=== PATIENT | female | born 1970 | race African-American/Black ===

== ENCOUNTER 2016-09-23 06:47 | Emergency (ER) | payer BC ==
[~2016-09-23] VITALS: Ht 154.9 cm; Wt 65.0 kg
[2016-09-23 06:49] VITALS: BP 171/103; PULSE 100; RESP 16; TEMP 98.7; O2SAT 100
[2016-09-23 06:54] VITALS: BP 179/100
[2016-09-23] MEDS ORDERED: METO-309 PO (07:04)
[2016-09-23] MEDS ORDERED: LOTR10CA2 PO (07:04)
--- NOTE | 2016-09-23 07:06 | PD ---
HPI . left sided tooth pain and jaw swellin x 1 day Chief Complaint: Oral / Dental Pain or Problem Time Seen by Provider: 07:06 Travel History International Travel<30 days: No Contact w/Intl Traveler<30days: No Traveled to known affect area: No History of Present Illness HPI 46-year-old female with history of hypertension here with complaints of dental pain. Patient has a cracked tooth in her lower jaw and tells me that all of a sudden yesterday it started to hurt and swell. She is visiting from [place] and plans on returning home to see a dentist this week. She denies any fever or chills. She has no other complaints. PFSH Past Medical History Hypertension: Yes Social History Tobacco Use: No Allergies-Medications (Allergen,Severity, Reaction): Coded Allergies: No Known Allergies (Unverified , 09/23/16) Reported Meds & Prescriptions Reported Meds & Active Scripts Active Ibuprofen 800 Mg Tab 800 Mg PO TID Augmentin (Amoxicillin-Clavulanate) 875-125 mg Tab 875 Mg PO BID not for use in CrCl <30 ml/min. Reported Lopressor (Metoprolol Tartrate) 50 Mg Tab 25 Mg PO BID Lotrel (Amlodipine-Benazepril) 10-40 Mg Cap 1 Cap PO DAILY Review of Systems General / Constitutional: No: Fever Eyes: No: Visual changes HENT: Positive: Dental Difficulties, No: Headaches Cardiovascular: No: Chest Pain or Discomfort Respiratory: No: Shortness of Breath Gastrointestinal: No: Abdominal Pain Genitourinary: No: Dysuria Musculoskeletal: No: Pain Skin: No Rash Neurologic: No: Weakness Psychiatric: No: Depression Endocrine: No: Polydipsia Hematologic/Lymphatic: No: Easy Bruising Physical Exam Narrative GENERAL: AAO x 3, no acute distress, Well-nourished, well-developed patient. SKIN: Warm and dry. No visible rashes or bruising. HEAD: Normocephalic and atraumatic. EYES: No scleral icterus. No injection or drainage. ENT: No nasal drainage noted. Mucous membranes pink. Airway patent. Minimal edema around # 17, which is partial cracked and remains in gum. There is no definitive abscess formation or fluid collection. The cheek is minimally swollen without any definitive fluid collection. NECK: Supple, trachea midline. No JVD. no lymphadenopathy CARDIOVASCULAR: Regular rate and rhythm without murmurs, gallops, or rubs. RESPIRATORY: Breath sounds equal bilaterally. No accessory muscle use. No rhonchi or rales. GASTROINTESTINAL: Abdomen soft, non-tender, nondistended. EXTREMITIES: No cyanosis or edema. BACK: Nontender without obvious deformity. No CVA tenderness. PSYCH: AAO x 3, normal affect. Data Data Last Documented VS Vital Signs Date Time Temp Pulse Resp B/P Pulse Ox O2 Delivery O2 Flow Rate FiO2 09/23/16 06:54 179/100 09/23/16 06:49 98.7 100 16 100 Room Air MDM Medical Decision Making Medical Screen Exam Complete: Yes Emergency Medical Condition: Yes Medical Record Reviewed: Yes (none on file) Differential Diagnosis oral cellulitis, less likely gingivitis, less likely oral abscess Narrative Course 46-year-old female with history of hypertension here with complaints of dental pain. Patient has a cracked tooth in her lower jaw and tells me that all of a sudden yesterday it started to hurt and swell. She is visiting from [place] and plans on returning home to see a dentist this week. She denies any fever or chills. She has no other complaints. Patient has some oral cellulitis, start of abscess around #17 recommend start antibiotics and f/u with dentist for extraction of cracked tooth no definitive oral abscess to drain Patient verbalized understanding of instructions, questions were answered, and thanked me for their care. I advised them if their condition worsens, please return to the nearest emergency room for further care. Diagnosis Primary Impression: Oral cellulitis Patient Instructions: Dental Abscess (ED), Dental Caries (ED), General Instructions Additional Instructions: Try saltwater gargles daily. Please return to emergency department if your symptoms return or worsen. Follow up with your primary care provider. Take medications as prescribed. Please try to see a dentist within the next 2-3 days. Med/Other Pt SpecificInfo: Prescription(s) given Scripts Ibuprofen 800 Mg [id number] Mg PO TID #20 TAB Prov:Shaun Connelly MD 09/23/16 Amoxicillin-Clavulanate (Augmentin)875-125 mg [id number] Mg PO BID #20 TAB not for use in CrCl <30 ml/min. Prov:Shaun Connelly MD 09/23/16 Disposition: 01 DISCHARGE HOME Condition: Stable Lizz Cook Sep 23, 2016 07:06
[2016-09-23] MEDS ORDERED: IBUP800T23 PO (07:09)
[2016-09-23] MEDS ORDERED: AUGM875T PO (07:09)
== END 2016-09-23 07:22 | disposition home or self-care (01) ==
LOC: NEPB 06:47
DX: K12.2 Cellulitis and abscess of mouth (principal); I10 Essential (primary) hypertension
CPT/HCPCS: 99282